=== PATIENT | female | born 1950 | race Asian ===

== ENCOUNTER 2021-10-09 15:59 | Emergency (ER) | payer OTHER ==
[~2021-10-09] VITALS: Ht 157.5 cm; Wt 49.0 kg
--- NOTE | 2021-10-09 16:23 | NUR ---
Pt A&Ox4. Denies any pain at this moment, in NAD at this time. States understanding plan for radiologic studies.
--- NOTE | 2021-10-09 16:40 | NUR ---
Pt taken down to radiology via gurney in stable condition by radiology orderly.
--- NOTE | 2021-10-09 17:23 | NUR ---
Pt brought back from radiology in stable condition. Continues to deny pain. In NAD at this time.
--- NOTE | 2021-10-09 17:38 | NUR ---
Step-son at bedside. Given update in status. Pt continues to deny pain, is in stable conition. Refusing ice pack at this time.
--- NOTE | 2021-10-09 18:55 | NUR ---
Patient discharged to home in stable condition accompanied by step son. Written and verbal after care instructions given. Patient and family verbalizes understanding of instructions. Stressed follow up or return to ER for worsening s/s. Pt taken via private auto to facility.
[2021-10-09 19:03] VITALS: BP 148/80
== END 2021-10-09 19:00 ==
LOC: ER 16:03
DX: S00.83XA Contusion of other part of head, initial encounter (principal); S00.12XA Contusion of left eyelid and periocular area, initial encounter; W18.2XXA Fall in (into) shower or empty bathtub, initial encounter; Y93.E1 Activity, personal bathing and showering; Y92.091 Bathroom in other non-institutional residence as the place of occurrence of the external cause; I67.2 Cerebral atherosclerosis; Z86.73 Personal history of transient ischemic attack (TIA), and cerebral infarction without residual deficits
CPT/HCPCS: 70450; 70480; 72125; A4663

== ENCOUNTER 2021-11-13 08:05 | Emergency (ER) | payer OTHER ==
[~2021-11-13] VITALS: Ht 157.5 cm; Wt 49.0 kg
[2021-11-13] MEDS ORDERED: IBUPROFEN 600 MG TABLET PO ONE (08:30)
[2021-11-13] MEDS ORDERED: IBUPROFEN 600 MG TABLET ONE (08:52)
[2021-11-13 11:43] LABS: HEMATOCRIT 39.2 % (31.2-41.9); MEAN CORPUSCULAR HEMOGLOBIN 30.6 uug (24.7-32.8); MEAN CORPUSCULAR VOLUME 91.6 fL (75.5-95.3); PLATELET COUNT (AUTO) 313 K/uL (179-408)
[2021-11-13 11:52] LABS: CREATININE 0.7 mg/dL (0.6-1.3)
--- NOTE | 2021-11-13 18:03 | NUR ---
pt transfered to [place] in stable condition.
== END 2021-11-13 18:30 | disposition short-term general hospital (02) ==
LOC: ER 08:09
DX: S00.93XA Contusion of unspecified part of head, initial encounter (principal); S32.019A Unspecified fracture of first lumbar vertebra, initial encounter for closed fracture; S32.049A Unspecified fracture of fourth lumbar vertebra, initial encounter for closed fracture; W01.0XXA Fall on same level from slipping, tripping and stumbling without subsequent striking against object, initial encounter; Y92.89 Other specified places as the place of occurrence of the external cause; F32.A Depression, unspecified; M51.26 Other intervertebral disc displacement, lumbar region; Z20.822 Contact with and (suspected) exposure to COVID-19
CPT/HCPCS: 70450; 72131; 72170; 73502; 85025; A4663

== ENCOUNTER 2021-12-23 14:59 | Emergency (ER) | payer OTHER ==
[~2021-12-23] VITALS: Ht 152.4 cm; Wt 44.5 kg
[2021-12-23] MEDS ORDERED: IV NORMAL SALINE 1000 ML BAG IV ONE (15:30)
[2021-12-23 16:05] LABS: HEMATOCRIT 37.2 % (31.2-41.9); MEAN CORPUSCULAR HEMOGLOBIN 29.5 uug (24.7-32.8); MEAN CORPUSCULAR VOLUME 88.8 fL (75.5-95.3); PLATELET COUNT (AUTO) 430 K/uL (179-408)
[2021-12-23 16:11] LABS: CREATININE 0.6 mg/dL (0.6-1.3)
[2021-12-23 16:24] LABS: BILIRUBIN,DIRECT 0.1 mg/dL (0.0-0.2); BILIRUBIN,TOTAL 0.5 mg/dL (0.2-1.0); TOTAL PROTEIN, SERUM 7.4 g/dL (6.4-8.2)
[2021-12-23] MEDS ORDERED: POTASSIUM BICARBONATE/CIT AC 25 MEQ TABLET.EFF PO ONE (16:45)
--- NOTE | 2021-12-23 16:52 | NUR ---
Patient BIB [facility] for fall. She is A/A/O x3 in no distress. States he "slipped off the blanket and fell". C/O mild neck pain. I asked her for a urine sample and she stated "I dont need that, I dont want to give urine". Then I gave her the K-Lyte mixed with water and she stated "I dont want that". I explained to her the need for K supplement as her level was low and she still refused. She answered all my questions (name, , month, current president) and she answered them all correctly. I notified Dr Davidson and she is in the room speaking to her now
[2021-12-23] MEDS ORDERED: POTASSIUM BICARBONATE/CIT AC 25 MEQ TABLET.EFF ONE (16:54)
[2021-12-23] MEDS ORDERED: POTASSIUM CHLORIDE 50 ML IV SCH (17:15)
[2021-12-23] MEDS ORDERED: POTASSIUM CHLORIDE 50 ML ONE (17:25)
--- NOTE | 2021-12-23 18:56 | NUR ---
PATIENT IS SIPPING ON WATER. HAND OFF REPORT GIVEN TO EMILIA DOWELL
--- NOTE | 2021-12-23 18:59 | NUR ---
pt awake, currently has iv potassium infusion as her k was at a level of 3
--- NOTE | 2021-12-23 19:15 | NUR ---
Called [facility] . Spoke with jesús Galvin to go to [facility], waiting on bed assignment. Dr. Belcher is accepting the pt.
--- NOTE | 2021-12-23 20:02 | NUR ---
Call from [facility] from [facility]. Pt to go to [facility] bed 2813 bed A. Accepting doctor is Crystal Belcher. report number to call is [phone] ETA for ALS transport by [facility] ambulance is [id number].
--- NOTE | 2021-12-23 20:15 | NUR ---
Called to [facility] to give report. Nurse was not available at the moment and they said they will call back.
--- NOTE | 2021-12-23 20:20 | NUR ---
Report given to Jacob DOWELL at [facility] for room 2813-A.
--- NOTE | 2021-12-23 21:59 | NUR ---
pts son Artemio called for status update. Informed him of transfer to [facility] and time of transfer.
--- NOTE | 2021-12-23 22:30 | NUR ---
pt taken to [facility] by [facility] ambulance transport. Report was given. Call was placed to Artemio jesús's son that pt was leaving.
== END 2021-12-23 22:32 | disposition short-term general hospital (02) ==
LOC: ER 14:59
DX: G93.40 Encephalopathy, unspecified (principal); E87.6 Hypokalemia; R55 Syncope and collapse; S09.90XA Unspecified injury of head, initial encounter; W06.XXXA Fall from bed, initial encounter; Y92.092 Bedroom in other non-institutional residence as the place of occurrence of the external cause; U07.1 COVID-19; R91.8 Other nonspecific abnormal finding of lung field; M50.321 Other cervical disc degeneration at C4-C5 level; D75.839 Thrombocytosis, unspecified
CPT/HCPCS: 36415; 70450; 71045; 72125; 80048; 80076; 83605; 83880; 84443; 84484; 85025; 85730; 87040 ×2; 87426; 93005; 96361; 96365; 99285; J3480; 70030-TC; A4663; J7030